=== PATIENT | male | born 1955 ===

== ENCOUNTER 2017-12-05 09:30 | Inpatient (IN) | payer OTHER ==
[~2017-12-05] VITALS: Ht 167.6 cm; Wt 63.5 kg
[~2017-12-05 09:30] MED LIST: ALLEGRA ALLERGY60 MG PO; AMOX1TAB12 PO; ATIVAN1 M1 PO; BENADRYL50 MG PO; CALCUIM PO; CATAFLAN PO; DOCUSATE SODIU100 MG PO; GABAPENTIN600 MG PO; GABAPENTIN800 MG PO; LIPIT PO; OMEGA-31000 MG PO; PERCOCET 5-3251 EACH PO; PNEU16DI2; PROTONIX40 M1 PO; RESTORIL30 M1 PO; RESTORIL30 MG PO; ULTRAN PO; WELLBUTRIN SR150 MG PO; XALATAN; ZANTAC300 MG PO
[2017-12-09] MEDS ORDERED: CALCIUM500 M1 PO (15:52)
[2017-12-11] MEDS ORDERED: HYOSCYAMINE0.125 M1 SL (09:46)
[2017-12-11] MEDS ORDERED: OXYC1TAB9 PO (09:47)
== END 2017-12-11 10:44 | disposition home or self-care (01) | DRG 330 ==
LOC: O/R 12-08 08:39 → SURG 12-08 08:39 → SURH 12-08 09:30 → SURG 12-08 19:20 → SURH 12-10 18:10
PROVIDERS: Surgery
PROC: 07TC4ZZ Resection of Pelvis Lymphatic, Percutaneous Endoscopic Approach (ICD-10-PCS; 2017-12-08)
PROC: 0D1N4Z4 Bypass Sigmoid Colon to Cutaneous, Percutaneous Endoscopic Approach (ICD-10-PCS; 2017-12-08)
PROC: 0DTN4ZZ Resection of Sigmoid Colon, Percutaneous Endoscopic Approach (ICD-10-PCS; principal; 2017-12-08 16:00)
DX: C20 Malignant neoplasm of rectum (principal); M47.16 Other spondylosis with myelopathy, lumbar region; M43.16 Spondylolisthesis, lumbar region

== ENCOUNTER 2018-11-12 15:36 | Inpatient (IN) | payer OTHER ==
[~2018-11-12] VITALS: Ht 167.6 cm; Wt 55.3 kg
[~2018-11-12 15:36] MED LIST changes: +CALCIUM500 M1 PO; +HYOSCYAMINE0.125 M1 SL; +OXYC1TAB9 PO
--- NOTE | 2018-11-12 15:52 | NUR ---
SE RECIBE PTE EN AMBULANCIA ,TRANSFERIDO DEL DR[facility] ,PTE REFIEREC DOLOR ABDOMINAL ,REFIERE TENER CANCER EN EL COLON.
[2018-11-12] MEDS ORDERED: RESTORIL30 M1 (15:59)
[2018-11-12] MEDS ORDERED: WELLBUTRIN XL150 M1 (16:02)
[2018-11-12] MEDS ORDERED: ATIVAN1 M1 (16:02)
[2018-11-12] MEDS ORDERED: AZOPT10 ML (16:03)
[2018-11-12] MEDS ORDERED: PROTONIX40 MG (16:04)
[2018-11-12] MEDS ORDERED: ZANTAC300 MG (16:04)
[2018-11-12] MEDS ORDERED: NEURONTIN800 MG (16:05)
[2018-11-12] MEDS ORDERED: BENADRYL50 MG (16:05)
[2018-11-12] MEDS ORDERED: BRIMONIDINE TART5 ML (16:06)
[2018-11-12] MEDS ORDERED: VITAMIN D1000 UNIT (16:06)
[2018-11-12] MEDS ORDERED: LIPITOR20 MG (16:06)
--- NOTE | 2018-11-12 17:14 | NUR ---
BAJO MEDIDAS ASEPTICAS SE LE THIAGO MUESTRA DE [place] DE [place] DERECHA DEL PACIENTE. PACIENTE MUESTRA IVF 0.9% NACL QUE FUE COLOCADO EN BRAZO DERECHO POR OTRO INSTUTICION. SARWAT ORDEN MEDICA SE LE COLOCA TUBO NASO GASTRICO EN FOSSA NASAL DERECHA. SE AUSCULTA PACIENTE PARA VERIFICAR QUE ESTA EN ESTOMAGO. SALE RESIDUO COLOR AMARILLENTO DEL TUBO Y SE LE CONECTE A SUCCION INTERMITENTE SARWAT ORDEN MEDICA VERBAL. PACIENTE TIENE PENDIENTE TRASLADO A PISO. SE ORIENTA PACIENET SOBRE PROCESO DE TRASLADO. PACIENTE SE MANTIENE BAJO OBSERVACION EN CAMA PARA CAMBIOS SIGNIFICATIVOS.
== END 2018-11-27 15:28 | disposition home or self-care (01) | DRG 329 ==
LOC: ER 15:36 → ICU 16:53 → SURH 16:53 → ICU 11-16 13:37 → SURG 11-23 18:34
PROVIDERS: ADMIT Surgery
PROC: 02HV33Z Insertion of Infusion Device into Superior Vena Cava, Percutaneous Approach (ICD-10-PCS; 2018-11-13)
PROC: BW21ZZZ Computerized Tomography (CT Scan) of Abdomen and Pelvis (ICD-10-PCS; 2018-11-13)
PROC: B246ZZZ Ultrasonography of Right and Left Heart (ICD-10-PCS; 2018-11-13)
PROC: 0DNW0ZZ Release Peritoneum, Open Approach (ICD-10-PCS; 2018-11-16)
PROC: 0DBV0ZX Excision of Mesentery, Open Approach, Diagnostic (ICD-10-PCS; 2018-11-16)
PROC: 0WJG0ZZ Inspection of Peritoneal Cavity, Open Approach (ICD-10-PCS; 2018-11-16)
PROC: B54PZZZ Ultrasonography of Bilateral Upper Extremity Veins (ICD-10-PCS; 2018-11-16)
PROC: 3E0F7GC Introduction of Other Therapeutic Substance into Respiratory Tract, Via Natural or Artificial Opening (ICD-10-PCS; 2018-11-16)
PROC: 5A1945Z Respiratory Ventilation, 24-96 Consecutive Hours (ICD-10-PCS; 2018-11-16)
PROC: 0DT80ZZ Resection of Small Intestine, Open Approach (ICD-10-PCS; principal; 2018-11-16 07:00)
DX: K56.51 Intestinal adhesions [bands], with partial obstruction (principal); J69.0 Pneumonitis due to inhalation of food and vomit; C48.1 Malignant neoplasm of specified parts of peritoneum; J95.89 Other postprocedural complications and disorders of respiratory system, not elsewhere classified; I82.B21 Chronic embolism and thrombosis of right subclavian vein; G72.81 Critical illness myopathy; R09.02 Hypoxemia; E87.6 Hypokalemia; E83.39 Other disorders of phosphorus metabolism; E78.49 Other hyperlipidemia; M43.17 Spondylolisthesis, lumbosacral region; F32.89 Other specified depressive episodes; Z85.028 Personal history of other malignant neoplasm of stomach; Z92.21 Personal history of antineoplastic chemotherapy; Z93.3 Colostomy status; Z79.01 Long term (current) use of anticoagulants